=== PATIENT | male | born 1975 ===

== ENCOUNTER 2017-08-18 21:15 | Emergency (ER) | payer BC ==
[2017-08-18 21:26] VITALS: BP 104/64; PULSE 59; RESP 16; TEMP 98.3; O2SAT 100
--- NOTE | 2017-08-18 21:37 | ED PDOC ---
HPI: Back Time Seen by Provider: 08/18/17 21:30 Chief Complaint (Nursing): Back Pain Chief Complaint (Provider): Neck Pain History Per: Patient History/Exam Limitations: no limitations Onset/Duration Of Symptoms: Days Current Symptoms Are (Timing): Still Present Previous Symptoms: Back Pain, Neck Pain Additional Complaint(s): 42-year-old male presents to the emergency department complaining of neck pain, worsened since last week following a chiropractic appointment. Pain is described as pressure-like, and has not been relieved with Aspirin. Patient reports having neck pain in the past, as well as low back pain, and has been having chiropractic adjustments for 3 weeks. He states he was previously diagnosed with herniated discs but has not had an MRI in years. No changes in sensation, focal deficits, fever or chills. PMD: None Past Medical History Reviewed: Historical Data, Nursing Documentation, Vital Signs Vital Signs: Last Vital Signs Temp 98.3 F 08/18/17 21:23 Pulse 59 L 08/18/17 21:23 Resp 16 08/18/17 21:23 BP 104/64 08/18/17 21:23 Pulse Ox 100 08/18/17 21:23 - Medical History PMH: Back Problems (herniated disc) - Surgical History Surgical History: Cholecystectomy - Family History Family History: States: Unknown Family Hx - Social History Current smoker - smoking cessation education provided: No Alcohol: None Drugs: Denies - Home Medications Home Medications: Ambulatory Orders Medication Instructions Recorded Methylprednisolone [Medrol Dose 4 mg PO ASDIR #21 mg 08/18/17 Pack (21 tabs)] Nabumetone [Relafen] 500 mg PO BID #20 tab 08/18/17 tiZANidine [Zanaflex] 4 mg PO Q8H PRN #20 tab 08/18/17 - Allergies Allergies/Adverse Reactions: Allergies Allergy/AdvReac Type Severity Reaction Status Date / Time No Known Allergies Allergy Verified 08/18/17 21:23 Review of Systems ROS Statement: Except As Marked, All Systems Reviewed And Found Negative Constitutional: Negative for: Fever, Chills Musculoskeletal: Positive for: Neck Pain Neurological: Negative for: Weakness, Numbness Physical Exam - Reviewed Nursing Documentation Reviewed: Yes Vital Signs Reviewed: Yes - Physical Exam Appears: Positive for: Well, Non-toxic, No Acute Distress Head Exam: Positive for: ATRAUMATIC, NORMAL INSPECTION, NORMOCEPHALIC Skin: Positive for: Normal Color. Negative for: Rash Eye Exam: Positive for: Normal appearance Neck: Positive for: Decreased ROM (with diffuse tenderness to the c-spine) Neurologic/Psych: Positive for: Alert, Oriented - ECG O2 Sat by Pulse Oximetry: 100 (RA) Pulse Ox Interpretation: Normal - Other Rad cervical spine x-ry X-Ray: Interpreted by Me, Viewed By Me X-Ray Interpretation: no fx, no dis, muscle spasm Medical Decision Making Medical Decision Making: Impression: 42 year old with torticollis Time: 21:35 Plan: PO Tylenol IM Toradol PO Valium X-ray c-spine Patient is aware of x-ray results, all questions answered. He states pain has improved s/p meds given. Will d/c with rx medrol dose pack, tizanidine and relafen. Patient was instructed to follow up with orthopedist, referral provided. Scribe Attestation: Documented by Ela Julien, acting as a scribe for Anastasia Cohen PA-C Provider Scribe Attestation: All medical record entries made by the Scribe were at my direction and personally dictated by me. I have reviewed the chart and agree that the record accurately reflects my personal performance of the history, physical exam, medical decision making, and the department course for this patient. I have also personally directed, reviewed, and agree with the discharge instructions and disposition. Disposition - Clinical Impression Clinical Impression: Torticollis Counseled Patient/Family Regarding: Studies Performed, Diagnosis, Need For Followup, Rx Given - Disposition Referrals: Ena Oliver MD [Staff Provider] - Disposition: Routine/Home Disposition Time: 22:28 Condition: STABLE Additional Instructions: TAKE RX MEDS DIRECTED. FOLLOW UP WITH ORTHOPEDIST IN 2-3 DAYS Prescriptions: Methylprednisolone [Medrol Dose Pack (21 tabs)] 4 mg PO ASDIR #21 mg Nabumetone [Relafen] 500 mg PO BID #20 tab tiZANidine [Zanaflex] 4 mg PO Q8H PRN #20 tab PRN Reason: Muscle Pain Instructions: Torticollis, Adult Forms: [facility] (Kyr[place]z), [facility] ED School/Work Excuse
--- NOTE | 2017-08-19 09:06 | RAD ---
PROCEDURE: Cervical Spine Radiographs. HISTORY: Pain. COMPARISON: Correlations made to CT scan of cervical spine dated 01/12/2010. FINDINGS: BONES: Alignment maintained. No fracture. Dens Intact. DISC SPACES: Normal. SOFT TISSUES: Normal. No prevertebral soft tissue swelling. OTHER FINDINGS: None. IMPRESSION: No acute fracture
== END 2017-08-18 22:37 | disposition home or self-care (01) ==
LOC: H.ER 21:15
DX: M43.6 Torticollis (principal)
CPT/HCPCS: 72040; 96372; 99283; J1885